=== PATIENT | female | born 2000 | race Caucasian/White ===

== ENCOUNTER 2023-06-29 12:13 | Outpatient (CLI) | payer OTHER, SELFPAY ==
--- NOTE | ~2023-06-29 | XR_ITS ---
EXAMINATION: XR ankle LT min 3V DATE: 06/29/2023 12:45 INDICATION: Medial left ankle pain. Injury. TECHNIQUE: 4 views of left ankle were obtained. COMPARISON: None. FINDINGS: Bone alignment is normal. No fracture. Joint spaces are normal. IMPRESSION: 1. No fracture. Reviewed, dictated and finalized at location E. DRIVER IMPRESSION: 1. No fracture.
== END 2023-06-29 12:14 | disposition home or self-care (01) ==
LOC: CHSIMG 12:19
PROVIDERS: PCP Physician Assistant; Visit Provider Family Medicine
DX: M25.572 Pain in left ankle and joints of left foot (principal)
CPT/HCPCS: 73610

== ENCOUNTER 2024-08-22 15:59 | Outpatient (CLI) | payer OTHER, SELFPAY ==
[2024-08-22 16:51] LABS: Basophils Percent Auto 0.5 % (0.2-1.2); Eosinophils Percent Auto 0.4 % (0-4.4); Hematocrit 40.6 % (37.0-47.0); Hemoglobin 13.4 g/dL (12.0-15.0); Immature Granulocyte Absolute 0.02 K/mm3 (0.00-0.031); Immature Granulocyte Percent A 0.3 % (0-0.5); Lymphocytes Absolute Auto 2.48 K/mm3 (0.9-3.2); Lymphocytes Percent Auto 33.9 % (18.3-44.2); Mean Corpuscular Hemoglobin 31.2 pg (26-34); Mean Corpuscular Volume 94.4 fl (80-100); Mean Platelet Volume 10.5 fl (7.4-10.4); Monocytes Absolute Auto 0.6 K/mm3 (0.1-0.6); Monocytes Percent Auto 7.9 % (2.6-8.5); Neutrophils Absolute Auto 4.2 K/mm3 (1.3-6.7); Platelet Count Result 223 k/mm3 (150-375); Red Cell Distribution Width 11.9 % (11.5-14.5); White Blood Count 7.3 K/mm3 (4.5-10.0)
--- OUTSIDE RECORDS SUMMARY | 2024-08-22 16:52 | XMS_ITS | Clinical Summary ---
Author Organization [facility] Address [address] [place] [id number] Care Team Providers Care Staff Nurse Name Role Phone Braydon Bhandari MD Primary Care Provider [phone] Allergies No known active allergies Medications buPROPion XL (WELLBUTRIN XL) 150 MG 24 hr tablet Take 1 tablet (150 mg total) by mouth daily. Active Active Problems Problem Noted Date Diagnosed Date ([facility]) 02/09/2019 Estimated Date of Delivery Comme nts Yes 02/16/2021 Encounters Date Type Department Care Team Description 06/15/2024 4:33 PM PLATEN PRESS OPERATOR - 06/15/2024 11:59 PM [facility] Hospital Encounter [facility] [address] [place] [address] Nathaniel Leone NP Discharge Disposition: Home or Self Care (Routine Discharge) 06/15/2024 Orders Only [facility] [address] [place] [address] Amara Grace MD 06/15/2024 Travel from Last 3 Months Family History Medical History Relation Comments Diabetes Maternal Grandfather Heart Disease Maternal Grandfather Hypertension Maternal Grandfather Diabetes Maternal Grandmother Hypertension Maternal Grandmother Relation Status Comments Maternal Grandfather Maternal Grandmother Social History Tobacco Use Types Packs/Day Years Used Date Smoking Tobacco: Never Smokeless Tobacco: Never Tobacco Cessation:Counseling Given: Not Answered Alcohol Use Standard Drinks/Week Comments No 0 (1 standard drink = 0.6 oz pur e alcohol) Humiliation, Afraid, Rape, and Kick questionnair e Answer Date Recorded Fear of Current or Ex-Partner Patient declined 1 Emotionally Abused Patient declined 02/09/2019 Physically Abused Patient declined 02/09/2019 Sexually Abused Patient declined 02/09/2019 AUDIT-C Answer Date Recorded Frequency of Alcohol Consumption Never 12/17/2018 Average Number of Drinks Not on file 019 Frequency of Binge Drinking Not on file 12/07 Estimated Date of Delivery Comme nts Yes 02/16/2021 Sex and Gender Information Value Date Recorded Sex Assigned at Female 06/15/2024 4:31 PM PLATEN PRESS OPERATOR Legal Sex Female 5:54 PM PLATEN PRESS OPERATOR Gender Identity Not on file Sexual Orientation Not on file Last Filed Vital Signs Vital Sign Reading Time Taken Comments Blood Pressure 125/71 05/03/2023 1:51 PM PLATEN PRESS OPERATOR Pulse 68 05/03/2023 1:51 PM PLATEN PRESS OPERATOR Temperature 36.6 C (97.8 F) 05/03/2023 11:34 AM PLATEN PRESS OPERATOR Respiratory Rate 18 05/03/2023 1:51 PM PLATEN PRESS OPERATOR Oxygen Saturation 99% 05/03/2023 1:51 PM PLATEN PRESS OPERATOR Inhaled Oxygen Concentration - - Weight 83 kg (183 lb) 05/03/2023 11:34 AM PLATEN PRESS OPERATOR Height 162.6 cm (5' 4 ) 05/03/2023 11:34 AM PLATEN PRESS OPERATOR Body Mass Index 31.41 05/03/2023 11:34 AM PLATEN PRESS OPERATOR Plan of Treatment Health Maintenance Due Date Last Done Comments Cervical Cancer Screening Pa p Smear (Age 21 to 29) Every 3 Years 1999 Cervical Cancer Screening 1999 Annual Physical 2002 HPV Vaccines (1 - 3-dose series) 2014 Hepatitis C 2017 DTaP, Tdap and Td Vaccines ( 1 - Tdap) 2018 Hepatitis B Vaccines (1 of 3 - 19+ 3-dose series) 2018 COVID-19 Vaccine ( - 2023-2 5 season) 2024 RSV Immunization or 60+ Years (1 - 1-dose 75+ series) 2074 Meningococcal B Vaccine Aged Out No l onger eligible based on patient's age to complete this topic Meningococcal Vaccine Aged Out No chris lavon eligible based on patient's age to complete this topic Pneumococcal Vaccine: Pediat rics (0 to 5 Years) and At-Risk Patients (6 to 49 Years) Aged Out No longer eligible b ased on patient's age to complete this topic RSV Immunizations Under 20 Months Aged Out No longer eligible based on patient's age to complete this topic Procedures Procedure Name Priority Date/Time Associated Diagnosis Comments STREP A RAPID Routine 06/15/2024 4:39 PM PLATEN PRESS OPERATOR Sore throat from Last 3 Months Results * STREP A RAPID (06/15/2024 4:39 PM PLATEN PRESS OPERATOR) SPECIMEN SOURCE THROAT 06/15/2024 5:08 PM PLATEN PRESS OPERATOR [facility] RAPID STREP TEST NEGATIVE NEGATIVE 06/15/2024 5:25 PM PLATEN PRESS OPERATOR [facility] STRUCTURE OF ANTERIOR PORTION OF NECK / Unknown 06/15/2024 4:39 PM PLATEN PRESS OPERATOR us Amara Grace MD MICROBIOLOGY - GENERAL ORD ERABLES Final Result [facility] [address] [place] [id number], from Last 3 Months Insurance [employer] Advance Directives * Full Code (Latest Code Status on File) Date Activated Date Inactivated Comments 02/09/2019 10:26 PM 02/10/2019 2:14 AM Care Teams Staff Nurse Relationship Specialty Start Date End Date Braydon Bhandari MD [address] [facility] [address] [place] [address] PCP - General OBGYN 12/17/18
--- OUTSIDE RECORDS SUMMARY | 2024-08-22 16:52 | XMS_ITS | Encounter Summary ---
Author Organization [facility] Address [address] [place] [address] Care Team Providers Care Sports Director Name Role Phone Braydon Bhandari MD Primary Care Provider [phone] Encounter Details Date Type Department Care Team (Late st Contact Info) Description 10/14/2018 Abstract [facility] CONVERSION [address] [place] [address] , Generic Conversion, Social History Tobacco Use Types Packs/Day Years Used Date Smoking Tobacco: Never Assessed Comments Unknown Sex and Gender Information Value Date Recorded Sex Assigned at Female 06/15/2024 4:31 PM BRANCH GENERAL MANAGER Legal Sex Female 5:54 PM BRANCH GENERAL MANAGER Gender Identity Not on file Sexual Orientation Not on file documented as of this encounter Plan of Treatment Not on file documented as of this encounter Visit Diagnoses Not on filedocumented in this encounter Additional Health Concerns Infection Onset Date Last Indicated Resolved Time COVID-19 Rule Out 05/03/2023 05/03/2023 05/03/2023 12:32 PM BRANCH GENERAL MANAGER documented as of this encounter Care Teams Sports Director Relationship Specialty Start Date End Date Braydon Bhandari MD [address] [facility] [address] [place] [address] PCP - General OBGYN 12/17/18 documented as of this encounter
[2024-08-22 17:05] LABS: Alanine Aminotransferase 20 U/L (6-35); Albumin Level 4.9 g/dL (3.5-5.1); Alkaline Phosphatase 69 U/L (38-126); Anion Gap 11 mmol/L (4-12); Aspartate Amino Transferase 32 U/L (14-36); Bilirubin,Total 0.6 mg/dL (0.2-1.3); Blood Urea Nitrogen 16 mg/dL (7-17); Calcium 9.4 mg/dL (8.4-10.2); Carbon Dioxide 25 mmol/L (22-30); Chloride 102 mmol/L (98-107); Estimated Glomerular Filt Rate > 60; Glucose 85 mg/dL (65-110); Potassium 3.6 mmol/L (3.4-5.0); Sodium 138 mmol/L (137-145)
[2024-08-22 17:30] LABS: Hemoglobin A1C 4.8 % (<5.7)
[2024-08-22 17:38] LABS: Free T3 4.81 pg/mL (2.32-6.09); Free T4 Free Thyroxine 1.21 ng/dL (0.78-2.19)
[2024-08-23 10:52] LABS: Prolactin 8.8 ng/mL
== END 2024-08-22 16:00 | disposition home or self-care (01) ==
LOC: ANHLAB 16:01
PROVIDERS: PCP Physician Assistant; Visit Provider Obstetrics & Gynecology
DX: N92.6 Irregular menstruation, unspecified (principal)
CPT/HCPCS: 36415; 80053; 83036; 84146; 84439; 84443; 84481; 85025